=== PATIENT | male | born 1955 | race Caucasian/White ===

== ENCOUNTER → 2017-05-27 | Outpatient (CLI) | payer OTHER ==
[~2017-05-27] MED LIST: CEPH250A PO; HYDACE5325 PO; HYDCHL12.5 PO; LOSA50 PO
== END ==
LOC: LAB 16:43 → LAB SHORT 16:43
DX: D48.5 Neoplasm of uncertain behavior of skin (principal)
CPT/HCPCS: 88305

== ENCOUNTER 2017-10-15 10:44 | Day surgery (SDC) | payer OTHER ==
[~2017-10-15] VITALS: Ht 177.8 cm; Wt 121.7 kg
[~2017-10-15 10:44] MED LIST changes: -HYDCHL12.5 PO
[2017-10-15] MEDS ORDERED: HYDCHL12.5 PO (11:39)
== END 2017-10-15 13:22 | disposition home or self-care (01) ==
LOC: ORSCSDS 10:44
PROVIDERS: Internal Medicine Gastroenterology
PROC: 3E0H8GC Introduction of Other Therapeutic Substance into Lower GI, Via Natural or Artificial Opening Endoscopic (ICD-10-PCS; principal; 2017-10-15 12:00)
PROC: 0DBP8ZX Excision of Rectum, Via Natural or Artificial Opening Endoscopic, Diagnostic (ICD-10-PCS; principal; 2017-10-15 12:00)
PROC: 0DBL8ZX Excision of Transverse Colon, Via Natural or Artificial Opening Endoscopic, Diagnostic (ICD-10-PCS; principal; 2017-10-15 12:00)
DX: Z86.010 Personal history of colon polyps (principal); D12.3 Benign neoplasm of transverse colon; D12.8 Benign neoplasm of rectum; K57.30 Diverticulosis of large intestine without perforation or abscess without bleeding; K64.8 Other hemorrhoids; I10 Essential (primary) hypertension; G47.33 Obstructive sleep apnea (adult) (pediatric); E66.01 Morbid (severe) obesity due to excess calories; Z68.38 Body mass index [BMI] 38.0-38.9, adult
CPT/HCPCS: J2405; J7120

== ENCOUNTER 2018-05-02 10:43 | Day surgery (SDC) | payer OTHER ==
[~2018-05-02] VITALS: Ht 177.8 cm; Wt 124.7 kg
[~2018-05-02 10:43] MED LIST changes: +CETI5 PO; +Cheratussin AC118 ML PO; +HYDCHL12.5 PO; +HYDCHL25 PO; +LOSARTAN POTAS100 MG PO; +Tessalon Perle100 MG PO; +Zovirax Cream 5%2 GM
--- NOTE | 2018-05-02 13:43 | NUR ---
05/02/18 1343 Loulou Mathis PT UPDATED OF DELAY. PT ASSISTED TO RESTROOM AT 1220 BY [facility].NSC AND 1321 BY [facility].RXS. CRUZ AT BEDSIDE. PRE OP TEACHING COMPLETED.
== END 2018-05-02 15:38 | disposition home or self-care (01) ==
LOC: ORSCSDS 10:43
PROVIDERS: Internal Medicine Gastroenterology
PROC: 0DBL8ZX Excision of Transverse Colon, Via Natural or Artificial Opening Endoscopic, Diagnostic (ICD-10-PCS; principal; 2018-05-02 12:00)
PROC: 0DBM8ZX Excision of Descending Colon, Via Natural or Artificial Opening Endoscopic, Diagnostic (ICD-10-PCS; principal; 2018-05-02 12:00)
DX: Z86.010 Personal history of colon polyps (principal); D12.3 Benign neoplasm of transverse colon; D12.4 Benign neoplasm of descending colon; K64.8 Other hemorrhoids; K57.30 Diverticulosis of large intestine without perforation or abscess without bleeding; G47.33 Obstructive sleep apnea (adult) (pediatric); I10 Essential (primary) hypertension; Z87.891 Personal history of nicotine dependence; R73.9 Hyperglycemia, unspecified; E78.5 Hyperlipidemia, unspecified; E78.1 Pure hyperglyceridemia; F43.22 Adjustment disorder with anxiety; Z79.899 Other long term (current) drug therapy
CPT/HCPCS: 88305; J7120

== ENCOUNTER → 2020-12-12 | Outpatient (CLI) | payer OTHER | END | disposition home or self-care (01) | LOC: LAB SHORT 14:12 → LAB 14:12 | DX: D22.0 Melanocytic nevi of lip (principal) | CPT/HCPCS: 88305 ==

== ENCOUNTER 2021-06-06 11:35 | Day surgery (SDC) | payer OTHER ==
[~2021-06-06] VITALS: Ht 177.8 cm; Wt 119.1 kg
[~2021-06-06 11:35] MED LIST changes: +ASCO500 PO; +BENADRYL25 MG PO; +CALCIUM-MAGNES1 EAC9 PO; +HYDROCHLOROTH12.5 MG PO; +LOSARTAN POTAS100 M1 PO; +MULTIPLE VITAM1 EACH PO; +TURMERIC500 M2; +VITAMIN D325 MC3 PO
[2021-06-06] MEDS ORDERED: Flovent 220 Ora12 GM (11:49)
--- NOTE | 2021-06-06 13:26 | NUR ---
06/06/21 1326 ROYAL JETT LATE ENTRY PT IV WAS CHANGED TO THE LEFT HAND FIRST ATTEMPT IN RIGHT HAND INFILTRATED STARTED BY XOCHITL RN/SECOND ATTEMPT IN RIGHT HAND UNSUCCESSFUL STARTED BY XOCHITL DELGADILLO
== END 2021-06-06 13:10 | disposition home or self-care (01) ==
LOC: ORSCSDS 11:35
PROVIDERS: Internal Medicine Gastroenterology
PROC: 0DBL8ZX Excision of Transverse Colon, Via Natural or Artificial Opening Endoscopic, Diagnostic (ICD-10-PCS; principal; 2021-06-06 08:30)
DX: Z12.11 Encounter for screening for malignant neoplasm of colon (principal); Z86.010 Personal history of colon polyps; K51.40 Inflammatory polyps of colon without complications; K57.30 Diverticulosis of large intestine without perforation or abscess without bleeding; I10 Essential (primary) hypertension; G47.33 Obstructive sleep apnea (adult) (pediatric); E66.01 Morbid (severe) obesity due to excess calories; Z68.36 Body mass index [BMI] 36.0-36.9, adult; Z79.899 Other long term (current) drug therapy
CPT/HCPCS: 88305; J2704; J7120

== ENCOUNTER → 2021-07-24 | Outpatient (CLI) | payer OTHER ==
[~2021-07-24] MED LIST changes: +Flovent 220 Ora12 GM
== END | disposition home or self-care (01) ==
LOC: LAB SHORT 15:22 → LAB 15:22
DX: L82.1 Other seborrheic keratosis (principal)
CPT/HCPCS: 88305

== ENCOUNTER 2024-11-26 19:26 | Inpatient (IN) | payer MEDICARE ==
[~2024-11-26] VITALS: Ht 177.8 cm; Wt 131.5 kg
[~2024-11-26 19:26] MED LIST changes: -AMLODIPINE BES2.5 MG PO; -OMEP20ER PO; -PROAIR RESPICL90 MCG INH; -ZYRTEC10 M2 PO
[2024-11-26] MEDS ORDERED: NS 1,000 ML IV SCH (20:45)
[2024-11-26] MEDS ORDERED: FentaNYL Citrate 50 MCG/ML 2 ML Injection IV ONE (20:45)
[2024-11-26] MEDS ORDERED: HYDROmorphone HCl/Pf 1MG SYR IV ONE (22:00)
[2024-11-26] MEDS ORDERED: HYDROmorphone HCl/Pf 1MG SYR IV PRN (22:00)
[2024-11-26 22:04] LABS: Source, Urine Clean Catch
[2024-11-26] MEDS ORDERED: HydrALAZINE HCl 20 MG / ML 1ML Vial IV PRN (22:15)
[2024-11-26 22:24] LABS: Bilirubin, Urine Neg (Neg); Glucose Qualitative, Urine Neg (Neg); Ketones, Urine 2+ (Neg); Leukocyte Esterase, Urine Neg (Neg); Protein, Urine 2+ (Neg); Specific Gravity, Urine 1.010 (1.003-1.022); Urobilinogen, Urine NORM (Normal)
[2024-11-26 22:34] LABS: Color, Urine Yellow (P-Yellow)
[2024-11-26 22:36] LABS: Red Blood Cells, Urine 50-100 /hpf (0-2); White Blood Cells, Urine 0-2 /hpf (0-5)
[2024-11-26 23:10] LABS: Prothrombin Time Results 11.9 Sec (9.7-11.5)
[2024-11-26 23:32] VITALS: BP 135/85
--- NOTE | 2024-11-27 01:21 | NUR ---
PT was heard calling out by this LN. when checking on him he stated that his girls would be in shortly. and that he needed to use that bathroom. he stated that he needed to pee. when offered to use the urinal he stated " that does not work" when asked how it does not work he stated that he just does not use it. when offered to use the bedside commode he stated that will not work ether. he wanted to use the rest room. this LN attemtped to reinforce saftey and use the urinal or bedside commode until therapy could eval. he stated that he would wait until his girls came in. when informed that it was about 1am and that might be a while he stated that was fine he would just "piss and shit" in the bed when the time came. LN reinforced that would be more than happy to help in a manner that was safe but didn't think walking to the bathroom would be very safe at the moment and offered the bedisde commode or urinal again. he stated no i can hold it awhile and that he would call if he needed something.
[2024-11-27 04:54] VITALS: BP 158/89
[2024-11-27 05:05] LABS: BASOPHILS ABSOLUTE AUTO 0.03 K/mm3 (0.00-0.23); BASOPHILS PERCENT AUTO 0 % (0-2); EOSINOPHILS ABSOLUTE AUTO 0.01 K/mm3 (0.00-0.68); EOSINOPHILS PERCENT AUTO 0 % (0-6); Hematocrit 40.1 % (37.0-53.0); Hemoglobin 13.6 g/dL (13.5-17.5); IMMATURE GRAN ABSOLUTE AUTO 0.07 K/mm3 (0.00-0.10); IMMATURE GRAN PERCENT AUTO 0 % (0-1); LYMPHOCYTES ABSOLUTE AUTO 2.03 K/mm3 (0.84-5.20); LYMPHOCYTES PERCENT AUTO 12 % (21-46); MONOCYTES ABSOLUTE AUTO 1.26 K/mm3 (0.16-1.47); MONOCYTES PERCENT AUTO 8 % (4-13); Mean Corpuscular HGB Conc 33.9 g/dL (31.5-36.5); Mean Corpuscular Volume 88 fL (80-100); NEUTROPHILS ABSOLUTE AUTO 13.43 K/mm3 (1.96-9.15); NEUTROPHILS PERCENT AUTO 80 % (41-73); NRBC ABSOLUTE 0.00 K/mm3 (0.00-0.02); NRBC Auto 0.0 /100 WBC (0.0-0.2); Platelet Count 248 K/mm3 (150-400); RDW Coefficient Variation 13.1 % (11.7-14.2); RDW Standard Deviation 42.2 fL (35.1-46.3)
--- NOTE | 2024-11-27 05:55 | NUR ---
SHIFT SUMMARY: Pt admitted for perinephric hematoma and is a full code. Is alert and able to make needs known. ADLs have been SBA. Pain has been managed with PRN medications. IV to left forearm is patent with dressing that is CDI.
[2024-11-27 05:56] LABS: Anion Gap 8.0 mmol/L (3-11); Blood Urea Nitrogen 15.0 mg/dL (8-24); CO2, Blood 25.0 mmol/L (21-32); Calcium, Blood 7.7 mg/dL (8.5-10.1); Chloride, Blood 109.0 mmol/L (98-108); Creatinine, Blood 1.16 mg/dL (0.60-1.20); Glucose, Blood 152.0 mg/dL (70-99); Potassium, Blood 3.3 mmol/L (3.5-5.5); Sodium, Blood 139.0 mmol/L (136-145)
[2024-11-27] MEDS ORDERED: Darbepoetin (Pharmacy Consult) SC SCH (06:40)
[2024-11-27 07:36] VITALS: BP 146/86
[2024-11-27] MEDS ORDERED: Potassium Chloride 10 Meq Tablet SA PO ONE (09:00)
[2024-11-27] MEDS ORDERED: OMEP20ER PO (11:09)
[2024-11-27] MEDS ORDERED: AMLODIPINE BES2.5 MG PO (11:09)
[2024-11-27] MEDS ORDERED: ZYRTEC10 M2 PO (11:10)
[2024-11-27] MEDS ORDERED: PROAIR RESPICL90 MCG INH (11:10)
[2024-11-27 15:57] VITALS: BP 143/83
--- NOTE | 2024-11-27 17:54 | NUR ---
PT A&OX4, VSS PN RA. PT HAD C/O RASH THAT ISNT NEW AND TAKES MEDICATIONS FOR IT EVERY DAY. MD NOTIFIED AND MEDICATION ORDERED AND GIVE WITH EFFECT. PT HAS NO C/O CHEST PAIN OR SOB
[2024-11-27 19:44] VITALS: BP 141/75
[2024-11-28 04:44] VITALS: BP 151/89
--- NOTE | 2024-11-28 05:28 | NUR ---
SHIFT SUMMARY PT SLEPT INTERMITTENTLY DURING THE NIGHT USING CPAP. DENIES PAIN. POST VOID BLADDER SCAN SHOWED 30ML. AMBULATING TO BATHROOM WITH SBA. DENIES COMPLAINTS.
[2024-11-28 05:48] LABS: Hematocrit 38.3 % (37.0-53.0); Hemoglobin 13.1 g/dL (13.5-17.5); Mean Corpuscular HGB Conc 34.2 g/dL (31.5-36.5); Mean Corpuscular Volume 89 fL (80-100); NRBC ABSOLUTE 0.00 K/mm3 (0.00-0.02); NRBC Auto 0.0 /100 WBC (0.0-0.2); Platelet Count 233 K/mm3 (150-400); RDW Coefficient Variation 13.2 % (11.7-14.2); RDW Standard Deviation 42.9 fL (35.1-46.3)
[2024-11-28 06:18] LABS: Albumin, Blood 2.7 g/dL (3.4-5.0); Anion Gap 8 mmol/L (3-11); Blood Urea Nitrogen 17 mg/dL (8-24); CO2, Blood 24 mmol/L (21-32); Calcium, Blood 7.6 mg/dL (8.5-10.1); Chloride, Blood 108 mmol/L (98-108); Creatinine, Blood 1.15 mg/dL (0.60-1.20); Glucose, Blood 113 mg/dL (70-99); Lactate Dehydrogenase (Ld),Bld 195 U/L (100-240); Magnesium, Blood 2.0 mg/dL (1.6-2.4); Phosphorus, Blood 2.6 mg/dL (2.5-4.9); Potassium, Blood 3.2 mmol/L (3.5-5.5); Sodium, Blood 137 mmol/L (136-145)
[2024-11-28 07:12] VITALS: BP 151/86
--- NOTE | 2024-11-28 13:01 | NUR ---
PT WAS DISCHARGED UNDER MD INSTRUCTIONS. ALL PIVS REMOVED. D/C PACKET IN HAND
[2024-12-01 04:44] LABS: ALDOSTERONE 11.9 ng/dL; ALDOSTERONE/RENINACTIVITY CALC 5.2 ratio (<=25.0); RENIN ACTIVITY 2.3 ng/mL/hr
== END 2024-11-28 12:52 | disposition home or self-care (01) | DRG 700 ==
LOC: ER 19:26 → MEDS 19:27 → ERHOLD 19:27 → MEDS 23:30
PROVIDERS: Internal Medicine Nephrology; Student in an Organized Health Care Education/Training Program; ADMIT Student in an Organized Health Care Education/Training Program
PROC: 5A09357 Assistance with Respiratory Ventilation, Less than 24 Consecutive Hours, Continuous Positive Airway Pressure (ICD-10-PCS; principal; 2024-11-26)
DX: N28.89 Other specified disorders of kidney and ureter (principal); R31.9 Hematuria, unspecified; E87.6 Hypokalemia; D72.829 Elevated white blood cell count, unspecified; K21.9 Gastro-esophageal reflux disease without esophagitis; G47.33 Obstructive sleep apnea (adult) (pediatric); E86.0 Dehydration; N17.9 Acute kidney failure, unspecified; I12.9 Hypertensive chronic kidney disease with stage 1 through stage 4 chronic kidney disease, or unspecified chronic kidney disease; N18.2 Chronic kidney disease, stage 2 (mild); D63.1 Anemia in chronic kidney disease; E87.70 Fluid overload, unspecified; R60.0 Localized edema; Z96.641 Presence of right artificial hip joint; Z85.51 Personal history of malignant neoplasm of bladder; Z88.8 Allergy status to other drugs, medicaments and biological substances; Z88.6 Allergy status to analgesic agent; Z91.040 Latex allergy status; Z87.891 Personal history of nicotine dependence; R10.9 Unspecified abdominal pain
CPT/HCPCS: 36415; 74150; 74177; 80048; 80053; 80069; 81001; 82088; 83605; 83615; 83735; 84244; 85025; 85027; 85610; 85730; 93975; 94762; 96374-59; 96375; 96376; 99285-25; A9270; G0378; J1171; J3010; J7030; Q9967

== ENCOUNTER → 2024-11-26 | Outpatient (CLI) | payer MEDICARE ==
[~2024-11-26] MED LIST changes: +AMLODIPINE BES2.5 MG PO; +OMEP20ER PO; +PROAIR RESPICL90 MCG INH; +ZYRTEC10 M2 PO
[2024-11-26 18:01] LABS: BASOPHILS ABSOLUTE AUTO 0.06 K/mm3 (0.00-0.23); BASOPHILS PERCENT AUTO 0 % (0-2); EOSINOPHILS ABSOLUTE AUTO 0.29 K/mm3 (0.00-0.68); EOSINOPHILS PERCENT AUTO 2 % (0-6); Hematocrit 47.5 % (37.0-53.0); Hemoglobin 16.5 g/dL (13.5-17.5); IMMATURE GRAN ABSOLUTE AUTO 0.04 K/mm3 (0.00-0.10); IMMATURE GRAN PERCENT AUTO 0 % (0-1); LYMPHOCYTES ABSOLUTE AUTO 2.23 K/mm3 (0.84-5.20); LYMPHOCYTES PERCENT AUTO 16 % (21-46); MONOCYTES ABSOLUTE AUTO 1.18 K/mm3 (0.16-1.47); MONOCYTES PERCENT AUTO 9 % (4-13); Mean Corpuscular HGB Conc 34.7 g/dL (31.5-36.5); Mean Corpuscular Volume 87 fL (80-100); NEUTROPHILS ABSOLUTE AUTO 10.10 K/mm3 (1.96-9.15); NEUTROPHILS PERCENT AUTO 73 % (41-73); NRBC ABSOLUTE 0.00 K/mm3 (0.00-0.02); NRBC Auto 0.0 /100 WBC (0.0-0.2); Platelet Count 254 K/mm3 (150-400); RDW Coefficient Variation 13.0 % (11.7-14.2); RDW Standard Deviation 40.9 fL (35.1-46.3)
[2024-11-26 18:13] LABS: Alanine Aminotransfer (ALT/SGP 71.0 U/L (12-78); Albumin, Blood 3.7 g/dL (3.4-5.0); Albumin/Globulin Ratio 0.9 (0.8-1.8); Anion Gap 11.0 mmol/L (3-11); Aspartate Aminotrans (AST/SGOT 56.0 U/L (12-37); Bilirubin, Total 0.8 mg/dL (0.1-1.0); Blood Urea Nitrogen 11.0 mg/dL (8-24); CO2, Blood 28.0 mmol/L (21-32); Calcium, Blood 9.0 mg/dL (8.5-10.1); Chloride, Blood 102.0 mmol/L (98-108); Creatinine, Blood 1.2 mg/dL (0.60-1.20); Globulin, Blood 4.2 g/dL (2.2-4.0); Glucose, Blood 128.0 mg/dL (70-99); Potassium, Blood 3.7 mmol/L (3.5-5.5); Sodium, Blood 137.0 mmol/L (136-145); Total Protein, Blood 7.9 g/dL (6.4-8.2)
== END ==
LOC: LAB SHORT 17:58 → LAB 17:58
PROVIDERS: Emergency Medicine
DX: R10.9 Unspecified abdominal pain (principal)
CPT/HCPCS: 80053; 85025

== ENCOUNTER → 2024-12-10 | Outpatient (CLI) | payer MEDICARE ==
[~2024-12-10] MED LIST changes: +AMLODIPINE BES2.5 MG PO; +OMEP20ER PO; +PROAIR RESPICL90 MCG INH; +ZYRTEC10 M2 PO
[2024-12-10 10:36] LABS: Microalbumin, Urine Quant. 12.7 mg/L (0.000-20.000); Protein, Urine Quantitative 12.5 mg/dL (0.0-11.9)
== END ==
LOC: LAB 08:23 → LAB SHORT 08:23
PROVIDERS: Internal Medicine Nephrology
DX: E78.00 Pure hypercholesterolemia, unspecified (principal); E55.9 Vitamin D deficiency, unspecified; N25.81 Secondary hyperparathyroidism of renal origin; D63.1 Anemia in chronic kidney disease; N18.2 Chronic kidney disease, stage 2 (mild); R76.9 Abnormal immunological finding in serum, unspecified; R94.5 Abnormal results of liver function studies; R94.6 Abnormal results of thyroid function studies; D51.8 Other vitamin B12 deficiency anemias; D52.8 Other folate deficiency anemias
CPT/HCPCS: 82043; 82570; 84156